=== PATIENT | female | born 1965 | race Caucasian/White ===

== ENCOUNTER 2023-07-05 16:50 | Outpatient (OUT) | payer OTHER, SELFPAY ==
--- NOTE | 2023-07-05 17:20 | MM_ITS ---
Patient Name: BELEN MARIO MR#: [id number] : 1965 Exam Date: 07/05/2023 Ordering Doctor: Non-Staff Physician RADIOLOGY REPORT PROCEDURE: MM TOMOSYNTHESIS SCREENING BI COMPARISON: MG MAMM SCREEN 3D JODI CAD, 07/02/2022. MG MAMM SCREEN JODI W CAD, 01/29/2020. MG MAMM SCREEN JODI W CAD, 05/31/2017. MG MAMM JODI SCRN W CAD DIG, 08/13/2013. INDICATIONS: Screening for breast malignancy Calculator Name [facility] Breast Cancer Risk Assessment Tool 5 Year Breast Cancer Risk 1.40% Lifetime Breast Cancer Risk 8.90% Personal Breast Cancer No Personal Ovarian Cancer No Treatments None Family Cancers None LOCATION: The [facility] BREAST COMPOSITION: Heterogeneously dense,which may obscure small masses. FINDINGS: DIAGNOSTIC CATEGORY 2--BENIGN FINDING: RIGHT BREAST: No significant suspicious finding. This exam includes additional mammographic views for implant evaluation and shows no visible implant abnormality. No significant change has occurred. LEFT BREAST: No significant suspicious finding. Scattered benign-appearing calcifications are present. This exam includes additional mammographic views for implant evaluation and shows no visible implant abnormality. No significant change has occurred. RECOMMENDATIONS: ROUTINE MAMMOGRAM AND CLINICAL EVALUATION IN 12 MONTHS. PLEASE NOTE: A NORMAL MAMMOGRAM DOES NOT EXCLUDE THE POSSIBILITY OF BREAST CANCER. A CLINICALLY SUSPICIOUS PALPABLE LUMP SHOULD BE BIOPSIED. Dictated by: Davon Chavarria M.D. on 07/06/2023 at 15:10 Approved by: Davon Chavarria M.D. on 07/06/2023 at 15:12
== END 2023-07-05 16:51 | disposition home or self-care (01) ==
LOC: MAMMO 16:50
PROVIDERS: PCP Internal Medicine
DX: Z12.31 Encounter for screening mammogram for malignant neoplasm of breast (principal)
CPT/HCPCS: 77063; 77067

== ENCOUNTER 2025-03-22 12:50 | Outpatient (OUT) | payer OTHER, SELFPAY ==
--- OUTSIDE RECORDS SUMMARY | 2025-03-22 12:55 | XMS_ITS | Clinical Summary ---
Author Organization [facility] Address [facility] [place] [address] Care Team Providers Care Scouring Train Operator Name Role Phone Unavailable Primary Care Provider Unavailabl e Encounters DateTypeDepartmentCare CiblQjqnndwidfc53/02/2025Telephone [facility] [address] [facility] [address] [place] [phone] Kelly Arias I, MD from Last 3 Months Social History Tobacco UseTypesPacks/DayYears UsedDateSmoking Tobacco: Never Assessed CommentsUnknownSex and Gender InformationValueDate RecordedSex Assigned at Not on fileLegal XiqSrkmdi18/02/2025 8:27 AM ESTGender IdentityNot on fileSexual OrientationNot on file Plan of Treatment DateTypeDepartmentCare Team (Latest Contact Info)Nqdkfpdskqa14/16/2026 10:00 AM ESTOffice Visit [facility] [address] [facility] [address] [place] [phone] Marium Desai APRN.VETERINARY EPIDEMIOLOGIST [address] [facility] [address] [place] [address] colon consultHealth MaintenanceDue DateLast DoneCommentsAnxiety Screening 1985Depression Antyvzqzt62/20/1986HIV Zqzkoyioo44/20/1986Hepatitis C Jpnddfzre92/20/1986DTaP,Tdap,Td Vaccine (1 - Tdap)1986Hepatitis B Vaccine (1 of 3 - 19+ 3-dose series)1986Cervical Cancer Sdmxjpyis14/20/1989 Mammogram Xsvdxbdwa31/20/2008CT Xdnjgacobzbw78/20/2013Cologuard (FIT-DNA) 05/24/20120561Bipmgadvazg39/20/2013Colorectal Cancer Mnasmblsj92/20/2013Diabetes Mixbxnwtr71/20/2013Fecal Occult Blood2012Lipid Bkijjektq32/20/2013 Wyolcslalhxvb67/20/2013Pneumococcal Vaccine: 50+ (1 of 1 - PCV)2017 Shingrix Vaccine (1 of 2)2017Covid-19 Vaccine (1 - 2024- season) 2024Influenza Vaccine (#1)2024RSV Vaccine (1 - 1-dose 75+ series) 2042
--- OUTSIDE RECORDS SUMMARY | 2025-03-22 12:55 | XMS_ITS | Clinical Summary ---
Author Organization [facility] Address [address] [place] [address] Phone Care Team Providers Care Canteen Manager Name Role Phone Rich Gerardo DO Primary Care Provider [phone] Social History Tobacco UseTypesPacks/DayYears UsedDateSmoking Tobacco: Never Assessed CommentsUnknownSex and Gender InformationValueDate RecordedSex Assigned at Phuidb4503/13/2024 4:08 PM ESTLegal GziPwpkax67/10/2024 2:50 PM ESTGender Identity Pykztk8303/13/2024 4:08 PM ESTSexual OrientationNot on file Plan of Treatment Health MaintenanceDue DateLast DoneCommentsCT Mdyhyzrnslie47/20/1968Colonoscopy 1967Colorectal Cancer Kukrtwsdq82/20/1968FIT-DNA (Cologuard)1967FIT 1967HIV Zsvjbjqnd72/20/1968Lipid Panel1967 4420Llwxnxwpoirbo86/20/1968MMR Vaccines (1 of 1 - Standard series)1968Hepatitis C Olhqdkdpo52/20/1986 Cervical Cancer Ahmzfenhr70/20/1989HPV/Pwacjp0405/24/1988Pap Smear1988 Pneumococcal Vaccine (1 of 1 - PCV)2017Zoster Vaccines (1 of 2)2017 Sjiqgetgi16DTaP/Tdap/Td Vaccines (2 - Td or Tdap)07/28/2022 07/28/2012Influenza Vaccine (#1), 02/22/2013COVID-19 Vaccine ( season)502/07/2020, 04/10/2020Yearly Adult Physical /03/2024, 12/13/2022Hepatitis B DjxhegwdEkwacmsdf18/30/2013, 08/29/2012, 07/28/2012HIB VaccinesAged OutNo longer eligible based on patient's age to complete this topicHPV VaccinesAged OutNo longer eligible based on patient's age to complete this topicHepatitis A VaccinesAged OutNo longer eligible based on patient's age to complete this topicIPV VaccinesAged OutNo longer eligible based on patient's age to complete this topicMeningococcal VaccineAged OutNo longer eligible based on patient's age to complete this topic Rotavirus VaccinesAged OutNo longer eligible based on patient's age to complete this topic Insurance Care Teams Team MemberRelationshipSpecialtyStart DateEnd Date Rich Gerardo DO [address] [place] [address] PCP - GeneralInternal Medicine07/07/24
--- OUTSIDE RECORDS SUMMARY | 2025-03-22 12:55 | XMS_ITS | Clinical Summary ---
Author Organization [facility] Address [address] [place] [address] Care Team Providers Care Solicitor Patent Name Role Phone Herberth Woodward MD Primary Care Provider [phone] Allergies Active AllergyReactionsCriticalityNoted DateCommentsAmoxicillin-Pot Clavulanate 12/08/2022 Other Reaction(s): Unknown Mite (D. Farinae)12/08/2022 Other Reaction(s): Unknown Medications MedicationSigDispense QuantityRefillsLast FilledStart DateEnd DateStatus Multiple Vitamins-Minerals (Multi Adult Gummies) chewable tablet Daily.Active acetaminophen (Tylenol) 500 MG tablet Take 500 mg by mouth every 6 (six) hours if needed for mild painActive cholecalciferol (Vitamin D-3) 25 MCG (1000 UT) capsule Take 1,000 Units by mouth DailyActive Calcium Carbonate (CALCIUM 500 PO) Take 500 mg by mouth in the morning and 500 mg before bedtime.Active ALPRAZolam (Xanax) 0.25 MG tablet Take 0.25 mg by mouth 2 (two) times a day as needed for ulqwqof58/08/2025Active estradiol (Climara) 0.025 MG/24HR Place 1 patch on the skin 1 (one) time per week5Active FLUoxetine (PROzac) 10 MG capsule Take 10 mg by mouth Daily5Active Active Problems ProblemNoted DateDiagnosed DatePure gopdzpqotvgjvimeywbs76/12/2024rthropathy of lumbosacral facet joint12/13/2022 Encounters DateTypeDepartmentCare GdpnZpwnlsgbcbf69/18/2025 1:30 PM ESTOffice Visit [facility] [address] [place] [phone] Bernie Iverson, [employer] FINISHER Annual physical exam (Primary Dx); Pure hypercholesterolemia; Moderate major depression (HCC); Colon cancer screening; Encounter for screening mammogram for malignant neoplasm of dikaif0802/19/2025 Qgtduc3202/14/20257791Gfxnyr02/06/2025Results Follow-Up [facility] [place] [facility] [address] [place] [address] Kalyani Sousa PA DEXA bone nlpnuaq9702/06/2025 2:00 PM ESTAncillary Procedure [facility] [address] [place] [phone] Asymptomatic age-related postmenopausal state02/06/20254769Kyipgj51/04/2025Orders Only [facility] [place] [facility] [address] [place] [phone] She Ramirez LPN Asymptomatic age-related postmenopausal state02/05/2025Orders Only [facility] [address] [place] [phone] She Ramirez LPN Encounter for medication management; Elevated LDL cholesterol levelfrom Last 3 Months Immunizations ImmunizationAdministration DatesNext DueHep B, adult01/31/2013,08/29/2012, 07/28/2012Tdap07/28/2012 Family History Medical HistoryRelationNameCommentsAccidental deathFatherRodney ReiterAccidental deathMotherBette ReiterRelationNameStatusCommentsFatherRodney ReiterDeceased MotherBette ReiterAliveSonAdoptedAlive Social History Tobacco UseTypesPacks/DayYears UsedDateSmoking Tobacco: NeverSmokeless Tobacco: Never Tobacco Cessation:Counseling Given: Not Answered Alcohol UseStandard Drinks/WeekCommentsYes2 (1 standard drink = 0.6 oz pure alcohol)Alcohol: 1 or 2 drinks on a typical day/monthly or less Caffeine: 2-3 cups/day tea and coffeeAUDIT-CAnswerDate RecordedQ1: How often do you have a drink containing alcohol?2-3 times a week12/15/2023Q2: How many drinks containing alcohol do you have on a typical day when you are drinking?1 or 2 12/15/2023Q3: How often do you have six or more drinks on one occasion?Never 4PHQ-2AnswerDate RecordedPatient Health Questionnaire-2 Score0 4CommentsUnknownSex and Gender InformationValueDate RecordedSex Assigned at UxwwcTbvhgq08/11/2023 8:33 AM EDTLegal AhvDhhlny11/15/2023 7:33 PM EDTGender QoocjjcuNuefrb54/11/2023 8:33 AM EDTSexual OrientationNot on file OccupationIndustryJob Start DateJob End DateNurseNot on fileNot on fileNot on file Last Filed Vital Signs Vital SignReadingTime TakenCommentsBlood Ehbvyrhq260/80104/21/2024 1:26 PM EST Mzdpr064202/19/2025 1:26 PM CUMEjsqzezhlzj94.7 ??C (98 ??F)03/09/2024 9:12 AM EST Respiratory Rate--Oxygen Gkwajaozot04%02/19/2025 1:26 PM ESTInhaled Oxygen Concentration--Vnznxt96.3 kg (155 lb)02/19/2025 1:26 PM BERVuysii653.9 cm (5' 6.5 )02/19/2025 1:26 PM ESTBody Mass Index24.6402/19/2025 1:26 PM EST Plan of Treatment DateTypeDepartmentCare Team (Latest Contact Info)Lbprknhkckz09/24/2026 1:30 PM ESTOffice Visit [facility] [place] [facility] [address] [place] [address] Health MaintenanceDue DateLast DoneCommentsCT Wknnwttrqivf12/20/1968Colonoscopy 1967Colorectal Cancer Avtcnknqb31/20/1968FIT-DNA1967FIT1967 FOBT1967 6485Ixduzltautolh12/20/1968Pap Smear1988Cervical Cancer Wblbnoanb93/20/1998HPV/Qlivdn8305/24/19976888Rsrilnmwn85/03/204994/06/2023, 07/05/2023, 01/29/2020COVID-19 Vaccine (2024- season)/07/2020, 04/10/2020Influenza Vaccine (#1)2024Pneumococcal Vaccine: Pediatrics (0 to 5 Years) and At-Risk Patients (6 to 64 Years)Aged OutNo longer eligible based on patient's age to complete this topic Procedures Procedure NamePriorityDate/TimeAssociated DiagnosisCommentsLIPID PANELRoutine 02/14/2025 9:49 AM EST Encounter for medication management Elevated LDL cholesterol level COMPREHENSIVE METABOLIC ZVSDRYdwxbor45/13/2025 9:49 AM EST Encounter for medication management Elevated LDL cholesterol level CBC (INCLUDES DIFF/PLT)Iciwvtw9302/14/2025 9:49 AM EST Encounter for medication management DEXA BONE TOBTOFJCxhpiul86/05/2025 2:12 PM EST Asymptomatic age-related postmenopausal state MM TOMOSYNTHESIS SCREENING BI07/06/2023 3:12 PM EDT from Last 3 Months or Most Recently Relevant to Health Maintenance Results * CBC and differential (02/14/2025 9:49 AM EST)ComponentValueRef RangeTest MethodAnalysis TimePerformed AtPathologist SignatureWBC4.43.4 - 10.8 x10E3/uL LABCORPRBC4.483.77 - 5.28 x10E6/uWSWGMRRBTdi81.811.1 - 15.9 g/zOEXPFEYWLys92.2 34.0 - 46.6 %VOWHVBOVMO6074 - 97 aFJPOGHUYIJA76.826.6 - 33.0 kjVWHICGRQKTP98.5 31.5 - 35.7 g/yEUELITHMZQY66.611.7 - 15.4 %BJCKLCOTjipvqiej786152 - 450 x10E3/eLQSHGKLXGgmrnynigpw86Gze Estab. %LIMVAHTOnwbao34Hbi Estab. %[facility] Comment:Few plasmacytoid lymphocytes and reactive lymphocytes.Wflutqblm3Erj Estab. %SXBKLMFVeu6Kze Estab. %GRNRQLVKicao9Lor Estab. %LABCORPNeutrophils Abs 1.51.4 - 7.0 x10E3/uLLABCORPLymphs Abs2.50.7 - 3.1 x10E3/uLLABCORPMonocytesAbs 0.40.1 - 0.9 x10E3/uLLABCORPEos Abs0.10.0 - 0.4 x10E3/uLLABCORPBaso Abs0.00.0 - 0.2 x10E3/uLLABCORPImmature Waqqxibnqyew3Ngv Estab. %LABCORPImmature Grans Abs0.00.0 - 0.1 x10E3/uLLABCORPHem CommentsNote:[facility]ABCORPComment:Verified by microscopic examination.Specimen (Source)Anatomical Location / Laterality Collection Method / VolumeCollection TimeReceived TimeBloodVenous blood specimen / Drlaqfj2302/14/2025 9:49 AM EST02/14/2025 Narrative [facility] - 02/15/2025 6:07 AM EST Performed at: [address], [address], [place] ??[id number] Rodeo Clown: Garcia Leblanc MD, Phone: ??[phone] Authorizing ProviderResult TypeResult StatusRobberta Woodward MDLAB BLOOD ORDERABLES Final ResultPerforming OrganizationAddressCity/State/ZIP CodePhone Number [facility] * (ABNORMAL) Lipid panel (02/14/2025 9:49 AM EST)ComponentValueRef RangeTest MethodAnalysis TimePerformed AtPathologist SignatureCholesterol, Awzif227(H) 100 - 199 mg/jONBJOFGLAxoebjhlfqycb398 - 149 mg/dLLABCORPHDL Bujpqxefdqk79>39 mg/dLLABCORPVLDL Cholesterol Aum879 - 40 mg/dLLABCORPLDL Chol Calc (NIH)143(H) 0 - 99 mg/dLLABCORPSpecimen (Source)Anatomical Location / LateralityCollection Method / VolumeCollection TimeReceived TimeBloodVenous blood specimen / Mhsadmf7102/14/2025 9:49 AM EST02/14/2025 Narrative [facility] - 02/15/2025 6:07 AM EST Performed at: [address] ??[id number] [employer]odeo Clown: Obi Stacy PhD, Phone: ??[phone] Authorizing ProviderResult TypeResult StatusRobert Rosalba Woodward MDLAB BLOOD ORDERABLES Final ResultPerforming OrganizationAddressCity/State/ZIP CodePhone Number [facility] * Comprehensive metabolic panel (02/14/2025 9:49 AM EST)ComponentValueRef Range Test MethodAnalysis TimePerformed AtPathologist EyklrucufJyvdiap2696 - 99 mg/pNCLRQQHDARO287 - 24 mg/dLLABCORPCreat0.720.57 - 1.00 mg/sYNFSTMAMQQUQ64>59 mL/min/1.73LABC[facility]PBUN/Creat Amnhb562 - 41MIGAWDVIhmead443175 - 144 mmol/L [facility]PPotassium4.33.5 - 5.2 mmol/QESDUAWXXoddbfcz44392 - 106 mmol/[facility] Carbon Zdpndlq4586 - 29 mmol/WDNTVVFMRwhbigo16.08.7 - 10.2 mg/dLLABCORPProtein Total7.06.0 - 8.5 g/dLLABCORPAlbumin4.83.8 - 4.9 g/dLLABCORPGlobulin Total2.2 1.5 - 4.5 g/dLLABCORPBili Total0.40.0 - 1.2 mg/dLLABCORPAlk Zexqaefpney5754 - 135 IU/GDOMITFGQNM4639 - 59 IU/CIRMSWEYYLJ197 - 35 IU/[facility]ABCORPSpecimen (Source)Anatomical Location / LateralityCollection Method / VolumeCollection TimeReceived TimeBloodVenous blood specimen / Lulcpku2102/14/2025 9:49 AM EST 02/14/2025 Narrative [facility] - 02/15/2025 6:07 AM EST Performed at: [place] [address] , [address], [place], [place] ??[id number] Rodeo Clown: Garcia Leblanc MD, Phone: ??[phone] Authorizing ProviderResult TypeResult Clyde Woodward MDLAB BLOOD ORDERABLES Final ResultPerforming OrganizationAddressCity/State/ZIP CodePhone Number [facility] * DEXA bone density (02/06/2025 2:12 PM EST)Anatomical RegionLateralityModality BodyDigital RadiographySpecimen (Source)Anatomical Location / Laterality Collection Method / VolumeCollection TimeReceived Time02/07/2025 11:07 AM EST Impressions 02/07/2025 11:11 AM EST Impression: Findings compatible with borderline mild/moderate osteopenia with borderline mild/moderate increased fracture risk. ELECTRONICALLY SIGNED BY: Magnus Goldsmith M.D. Narrative 02/07/2025 11:11 AM EST Examination: DEXA BONE DENSITY Clinical History: Z78.0 asymptomatic menopausal state Technique: Bone density study was performed. T score values for the lumbar spine, right femoral neck and left femoral neck were obtained. Comparison: None Findings: Value for the lumbar spine from L1-L4 is -1.5. Value for the right femoral neck is -0.8. Value for the left femoral neck is -1.0. Findings are compatible with borderline mild/moderate osteopenia with borderline mild/moderate increased fracture risk. No evidence of osteoporosis. Procedure Note Magnus Goldsmith MD - 02/07/2025 Examination: DEXA BONE DENSITY Clinical History: Z78.0 asymptomatic menopausal state Technique: Bone density study was performed. T score values for the lumbarspine, right femoral neck and left femoral neck were obtained. Comparison: None Findings: Value for the lumbar spine from L1-L4 is -1.5. Value for theright femoral neck is -0.8. Value for the left femoral neck is -1.0.Findings are compatible with borderline mild/moderate osteopenia withborderline mild/moderate increased fracture risk. No evidence ofosteoporosis. IMPRESSION: Impression: Findings compatible with borderline mild/moderate osteopeniawith borderline mild/moderate increased fracture risk. ELECTRONICALLY SIGNED BY: Magnus Goldsmith M.D. Authorizing ProviderResult TypeResult Clyde RICHARDSONG DXA PROCEDURES Final Result * MM TOMOSYNTHESIS SCREENING BI (07/06/2023 3:12 PM EDT)Anatomical Region LateralityModalityOtherSpecimen (Source)Anatomical Location / Laterality Collection Method / VolumeCollection TimeReceived Time07/06/2023 3:12 PM EDT Narrative 07/06/2023 3:13 PM EDT [facility] ?[address] ? [place] [address] ? Mammography Report ? Signed ? Patient: toshaBelen R ?MR#: [id number] ?? : 1965 ?Acct:[id number] ?? Age/Sex: 58 / F ?ADM Date: 07/05/23 ?? Loc: MAMMO ? Attending Dr: Non-Staff Physician M.D. ? Ordering Physician: Physician,Non-Staff M.D. ?Results: ? Date of Service: 07/05/23 ?Follow Up: ? Procedure(s): MM tomosynthesis screening BI ?? Accession Number(s): [id number] ? cc: ADAM MINOR ; Physician,Non-Staff M.D. ? Patient Name: ? BELEN PEREIRA ? MR#: [id number] ? : 1965 ? Exam Date: 07/05/2023 ?? Ordering Doctor: Non-Staff Physician ? RADIOLOGY REPORT ? PROCEDURE: ? MM TOMOSYNTHESIS SCREENING BI ? COMPARISON: ? MG MAMM SCREEN 3D JODI CAD, 07/02/2022. ??MG MAMM SCREEN JODI W ?? CAD, 01/29/2020. ??MG MAMM SCREEN JODI W CAD, 05/31/2017. ??MG MAMM JODI SCRN W CAD ?? DIG, 08/13/2013. ? INDICATIONS: ? Screening for breast malignancy ? Calculator Name ? NCI Breast Cancer Risk Assessment Tool ?? 5 Year Breast Cancer Risk ? 1.40% ?? Lifetime Breast Cancer Risk ? 8.90% ?? Personal Breast Cancer ?No ?? Personal Ovarian Cancer ? No ?? Treatments ? None ?? Family Cancers ? None ? LOCATION: ? [facility] ? BREAST COMPOSITION: ? Heterogeneously dense,which may obscure small masses. ? FINDINGS: ? DIAGNOSTIC CATEGORY 2--BENIGN FINDING: ? RIGHT BREAST: ??No significant suspicious finding. ??This exam includes ?? additional mammographic views for implant evaluation and shows no visible ?? implant abnormality. ??No significant change has occurred. ? LEFT BREAST: ??No significant suspicious finding. ??Scattered benign-appearing ?? calcifications are present. ??This exam includes additional mammographic views ?? for implant evaluation and shows no visible implant abnormality. ??No ?? significant change has occurred. ? RECOMMENDATIONS: ? ROUTINE MAMMOGRAM AND CLINICAL EVALUATION IN 12 MONTHS. ? PLEASE NOTE: ??A NORMAL MAMMOGRAM DOES NOT EXCLUDE THE POSSIBILITY OF BREAST ?? CANCER. ??A CLINICALLY SUSPICIOUS PALPABLE LUMP SHOULD BE BIOPSIED. ? Dictated by: Davon Chavarria M.D. on 07/06/2023 at 15:10 ? Approved by: Davon Chavarria M.D. on 07/06/2023 at 15:12 ? Dictated By: ?Davon Chavarria M.D. ? Signed By: ?07/06/23 1513 ? DD/ 1512 ? TD/TT: ? Supervisory Forester: Procedure Note Radiology, Radiologist, MD - 07/06/[address] [address] Mammography Report Signed Patient: Belen Pereira RMR#: [id number] : 1965Acct:[id number] Age/Sex: 58 / FADM Date: 07/05/23 Loc: MAMMO Attending Dr: ArianeStaff Physician Sawant Ordering Physician: Mor Gregory M.D.Results: Date of Service: 07/05/23Follow Up: Procedure(s): MM tomosynthesis screening BI Accession Number(s): [id number] cc: ADAM MINOR ; PhysicianMor M.D. Patient Name: BELEN PEREIRA MR#: [id number] : 1965 Exam Date: 07/05/2023 Ordering Doctor: Non-Staff Physician RADIOLOGY REPORT PROCEDURE: MM TOMOSYNTHESIS SCREENING BI COMPARISON: MG MAMM SCREEN 3D JODI CAD, 07/02/2022. MG MAMM SCREEN BILW CAD, 01/29/2020. MG MAMM SCREEN JODI W CAD, 05/31/2017. MG MAMM JODI SCRN WCAD DIG, 08/13/2013. INDICATIONS: Screening for breast malignancy Calculator Name NCI Breast Cancer Risk Assessment Tool 5 Year Breast Cancer Risk 1.40% Lifetime Breast Cancer Risk 8.90% Personal Breast Cancer No Personal Ovarian Cancer No Treatments None Family Cancers None LOCATION: [facility] BREAST COMPOSITION: Heterogeneously dense,which may obscure smallmasses. FINDINGS: DIAGNOSTIC CATEGORY 2--BENIGN FINDING: RIGHT BREAST: No significant suspicious finding. This exam includes additional mammographic views for implant evaluation and shows no visible implant abnormality. No significant change has occurred. LEFT BREAST: No significant suspicious finding. Scatteredbenign-appearing calcifications are present. This exam includes additional mammographicviews for implant evaluation and shows no visible implant abnormality. No significant change has occurred. RECOMMENDATIONS: ROUTINE MAMMOGRAM AND CLINICAL EVALUATION IN 12 MONTHS. PLEASE NOTE: A NORMAL MAMMOGRAM DOES NOT EXCLUDE THE POSSIBILITY OFBREAST CANCER. A CLINICALLY SUSPICIOUS PALPABLE LUMP SHOULD BE BIOPSIED. Dictated by: Davon Chavarria M.D. on 07/06/2023 at 15:10 Approved by: Davon Chavarria M.D. on 07/06/2023 at 15:12 Dictated By: Davon Chavarria M.D. Signed By:07/06/23 1513 DD/ 1512 TD/TT: Supervisory Forester: Authorizing ProviderResult TypeResult StatusGeneric External Data Provider CLINISYNC IMAGINGFinal Result from Last 3 Months or Most Recently Relevant to Health Maintenance Insurance Care Teams Team MemberRelationshipSpecialtyStart DateEnd Date Herberth Woodward MD [address] [place] [address] PCP - GeneralInternal Ykjohhmv26/15/25
--- NOTE | 2025-03-22 13:32 | MM_ITS ---
Patient Name: BELEN MARIO MR#: [id number] : 1965 Exam Date: 03/22/2025 Ordering Doctor: CONOR GUEVARA RADIOLOGY REPORT PROCEDURE: MM TOMOSYNTHESIS SCREENING BI COMPARISON: MM TOMOSYNTHESIS SCREENING BI, 07/05/2023. MG MAMM SCREEN 3D JODI CAD, 07/02/2022. MG MAMM SCREEN JODI W CAD, 01/29/2020. MG MAMM JODI SCRN W CAD DIG, 08/13/2013. INDICATIONS: Screening Calculator Name NCI Breast Cancer Risk Assessment Tool 5 Year Breast Cancer Risk 1.40% Lifetime Breast Cancer Risk 8.70% Personal Breast Cancer No Personal Ovarian Cancer No Treatments None Family Cancers None LOCATION: [facility] BREAST COMPOSITION: The breasts are heterogeneously dense, which may obscure small masses. FINDINGS: RIGHT BREAST: No significant suspicious finding. LEFT BREAST: No significant suspicious finding. Breast implantation. DIAGNOSTIC CATEGORY 1--NEGATIVE. RECOMMENDATIONS: ROUTINE MAMMOGRAM AND CLINICAL EVALUATION IN 12 MONTHS. Dictated by: Rich Martinez DO on 03/22/2025 at 14:22 Approved by: Rich Martinez DO on 03/22/2025 at 14:23
== END 2025-03-22 12:51 | disposition home or self-care (01) ==
PROVIDERS: PCP Internal Medicine; Visit Provider Obstetrics & Gynecology
DX: Z12.31 Encounter for screening mammogram for malignant neoplasm of breast (principal)
CPT/HCPCS: 77063; 77067